=== PATIENT | female | born 1965 | race Caucasian/White ===

== ENCOUNTER → 2017-05-29 | Outpatient (CLI) | payer OTHER | LOC: CIMAGING 14:39 | PROVIDERS: ATTEND Internal Medicine Rheumatology | DX: M25.50 Pain in unspecified joint (principal); L40.9 Psoriasis, unspecified; D86.9 Sarcoidosis, unspecified | CPT/HCPCS: 73120-PO ==

== ENCOUNTER 2017-06-03 22:51 | Inpatient (IN) | payer OTHER ==
[2017-06-03] MEDS ORDERED: ONDANSETRON 4 MG/2 ML VIAL IVP ONE (23:17)
[2017-06-03] MEDS ORDERED: NS 1,000 ML IV ONE (23:17)
--- NOTE | 2017-06-03 23:21 | EDPHY ---
H & P Stated Complaint: N,V, FEVER AND CONSTIPATION Time Seen by Provider: 06/03/17 23:00 HPI/ROS: HPI The patient presents with abdominal planes which are in her right upper quadrant and to her right back which have been present for the last several days. Her illness began about 5 days ago when she was dizzy with fever and nausea. The following day, she was seen at an urgent care and received IV fluids, she had a flu test which was negative. She continued to have ongoing fevers, body aches. She then about 2 days ago developed this abdominal pain which she describes as a bloated feeling which is prominently in her right abdomen and radiates toward her back. She saw her primary care doctor yesterday who started her on Augmentin for possible diverticulitis it seems verses sinusitis. She says she has not had a bowel movement in 6 days and became concerned about this tonight. She tried an enema tonight without relief. She called the advice nurse and was instructed to come to the emergency department to evaluate for stool impaction. The patient says that she is able to tolerate fluids by mouth, though feels nauseated. She had a fever about 1 hr ago of 100.4. REVIEW OF SYSTEMS Constitutional: No fever, no chills. Eyes: No discharge. ENT: No sore throat. Cardiovascular: No chest pain, no palpitations. Respiratory: No cough, no shortness of breath. Gastrointestinal: No abdominal pain, no vomiting. Genitourinary: No hematuria. Musculoskeletal: No back pain. Skin: No rashes. Neurological: No headache. PMHx: History of breast cancer, status post mastectomy, status post total abdominal hysterectomy, history of hernia repair with some complications, history of colon resection with peritonitis Soc Hx: Lives at home with her PHYSICAL General Appearance: Alert, no distress Eyes: Pupils equal and round no pallor or injection ENT, Mouth: Mucous membranes moist Respiratory: There are no retractions, lungs are clear to auscultation Cardiovascular: Regular rate and rhythm Gastrointestinal: Abdomen is soft and tender in the right upper and lower quadrants, no masses, bowel sounds normal Rectal: There is no masses, there is no stool in the rectal vault Neurological: A&O, moves all extremities Skin: Warm and dry, no rashes Musculoskeletal: Neck is supple non tender Extremities: symmetrical, full range of motion Psychiatric: Patient is oriented X 3, there is no agitation Source: Patient Exam Limitations: No limitations - Personal History LMP (Females 10-55): Hysterectomy Current Tetanus/Diphtheria Vaccine: Unsure Current Tetanus Diphtheria and Acellular Pertussis (TDAP): Unsure - Medical/Surgical History Hx Asthma: No Hx Chronic Respiratory Disease: No Hx Diabetes: Yes Hx Cardiac Disease: Yes Hx Renal Disease: Yes Other PMH: Mesh in abdomen,holding umbilical hernia 2008.C section, colon surgery and peritonitis with repair. Hysterectomy. double mastectomy, sinus surgery, bronchial surgery for sarcoid immune disease,knee surgery,. KIDNEY STONES. svt, type 2 diabetes - Social History Smoking Status: Former smoker Constitutional: Initial Vital Signs Temperature (C) 37.6 C 06/03/17 22:52 Heart Rate 89 06/03/17 22:52 Respiratory Rate 18 06/03/17 22:52 Blood Pressure 115/80 06/03/17 22:52 O2 Sat (%) 100 06/03/17 22:52 O2 Delivery Mode Room Air Allergies/Adverse Reactions: Sulfa (Sulfonamide Antibiotics) Allergy (Intermediate, Verified 12/26/15 18:24) Hives naproxen [From Naprosyn] Allergy (Unknown, Verified 12/26/15 18:24) Unknown Anesthetics - Tawnya Type- Parabens [Anesthetics - Tawnya Type] Allergy (Verified 12/26/15 18:24) Home Medications: Medication Instructions Recorded LEVOTHYROXINE 11/03/09 Gemfibrozil 08/25/14 Lisinopril [PRINIVIL] 08/25/14 Metformin HCl [Metformin 1000 mg] 08/25/14 Diflucan 06/03/17 Medical Decision Making - Diagnostics Imaging Results: Imaging Impressions Abdomen CT 06/03/17 23:17 Impression: 1. Stone measuring 1.2 x 0.7 x 1.1 cm impacted at the right ureteropelvic junction results in mild to moderate right hydronephrosis and mild periureteral inflammatory change. The right kidney is enlarged and enhances slightly less than the left, suggesting some diminished function. 2. Splenomegaly, similar to comparison exam in 2009. Dr. Marin discussed these findings by telephone with Daysi Lazaro MD on 06/04/2017 at 0025 hours. Differential Diagnosis: 51-year-old female with multiple medical problems including multiple abdominal operations, presents with a multitude of symptoms which began 5 days ago, which sound mostly flu-like including fever, malaise, myalgias, nausea and vomiting, now with several days of abdominal pain associated with constipation. Differential diagnosis is broad at this time includes peritonitis, appendicitis , cholecystitis, influenza, constipation, urinary tract infection. In the emergency department, patient received 1 L of IV fluids and Zofran for her symptoms. Labs were checked and were relatively unremarkable. CT scan of her abdomen did reveal an approximately 1 cm stone at the right UVJ. This is likely the cause of her symptoms. Urinalysis results returned and did show evidence of infection. I have reviewed her prior urine cultures and she has a history of E coli resistant to multiple antibiotics. It has been sensitive to ceftriaxone and I have given her a dose of this here. I feel she should be admitted for IV antibiotics and urologic consultation. I have discussed the case with the hospitalist Dr. Lan who will admit the patient. I have consulted with Dr. Cota from Urology who recommends IV antibiotics and hydration, his service will see the patient in consultation later in the morning. The patient has been updated on the plan. - Data Points Laboratory Results: Laboratory Results 06/03/17 23:27 06/03/17 23:27 06/04/17 06/03/17 06/03/17 00:20 23:27 23:27 WBC 8.94 10^3/uL 10^3/uL (3.80-9.50) RBC 3.44 10^6/uL L 10^6/uL (4.18-5.33) Hgb 10.9 g/dL L g/dL (12.6-16.3) Hct 29.7 % L % (38.0-47.0) MCV 86.3 fL fL (81.5-99.8) MCH 31.7 pg pg (27.9-34.1) MCHC 36.7 g/dL g/dL (32.4-36.7) RDW 12.4 % % (11.5-15.2) Plt Count 144 10^3/uL L 10^3/uL (150-400) MPV 9.7 fL fL (8.7-11.7) Neut % (Auto) Not Reported Lymph % (Auto) Not Reported [place] % (Auto) Not Reported Eos % (Auto) Not Reported Baso % (Auto) Not Reported Nucleat RBC Rel Count 0.0 % % (0.0-0.2) Absolute Neuts (auto) Not Reported Absolute Lymphs (auto) Not Reported Absolute Monos (auto) Not Reported Absolute Eos (auto) Not Reported Absolute Basos (auto) Not Reported Absolute Nucleated RBC 0.00 10^3/uL 10^3/uL (0-0.01) Immature Gran % Not Reported Seg Neutrophils % 70 % % Band Neutrophils % 2 % % Lymphocytes % 16 % % Monocytes % 7 % % Eosinophils % 3 % % Basophils % 1 % % Metamyelocytes % 1 % % Immature Gran # Not Reported Absolute Seg Neuts 6.26 10^/uL 10^/uL (1.70-6.50) Absolute Band Neuts 0.18 10^3/uL 10^3/uL (0.00-0.70) Absolute Lymphocytes 1.43 10^3/uL 10^3/uL (1.00-3.00) Absolute Monocytes 0.63 10^3/uL 10^3/uL (0.30-0.80) Absolute Eosinophils 0.27 10^3/uL 10^3/uL (0.03-0.40) Absolute Basophils 0.09 10^3/uL 10^3/uL (0.02-0.10) Absolute Metamyelocyte 0.09 10^3/mL H 10^3/mL (0.00-0.00) RBC/WBC/PLT Morphology NORMAL (NORMAL) Platelet Estimate DECREASED L (ADEQ) Sodium 133 mEq/L L mEq/L (134-144) Potassium 3.8 mEq/L mEq/L (3.5-5.2) Chloride 94 mEq/L L mEq/L (97-110) Carbon Dioxide 26 mEq/l mEq/l (22-31) Anion Gap 13 mEq/L mEq/L (8-16) BUN 20 mg/dL mg/dL (7-23) Creatinine 0.8 mg/dL mg/dL (0.6-1.0) Estimated GFR > 60 Glucose 322 mg/dL H mg/dL (70-100) Calcium 8.7 mg/dL mg/dL (8.5-10.4) Total Bilirubin 0.3 mg/dL mg/dL (0.1-1.4) Conjugated Bilirubin 0.2 mg/dL mg/dL (0.0-0.5) Unconjugated Bilirubin 0.1 mg/dL mg/dL (0.0-1.1) AST 22 IU/L IU/L (14-46) ALT 49 IU/L IU/L (9-52) Alkaline Phosphatase 115 IU/L IU/L (38-126) Total Protein 5.5 g/dL L g/dL (6.3-8.2) Albumin 3.2 g/dL L g/dL (3.5-5.0) Lipase 139 IU/L IU/L (23-300) Urine Color YELLOW Urine Appearance CLEAR Urine pH 6.0 (5.0-7.5) Ur Specific [place] 1.023 (1.002-1.030) Urine Protein NEGATIVE (NEGATIVE) Urine Ketones NEGATIVE (NEGATIVE) Urine Blood 2+ H (NEGATIVE) Urine Nitrate NEGATIVE (NEGATIVE) Urine Bilirubin NEGATIVE (NEGATIVE) Urine Urobilinogen NEGATIVE EU EU (0.2-1.0) Ur Leukocyte Esterase 2+ H (NEGATIVE) Urine RBC 5-10 /hpf H /hpf (0-3) Urine WBC 25-50 /hpf H /hpf (0-3) Ur Epithelial Cells TRACE /lpf /lpf (NONE-1+) Urine Glucose 3+ H (NEGATIVE) Medications Given: Discontinued Medications Sodium Chloride (Ns) 1,000 mls @ 0 mls/hr IV EDNOW ONE; Wide Open PRN Reason: Protocol Stop: 06/03/17 23:18 Last Admin: 06/03/17 23:29 Dose: 1,000 mls Ceftriaxone Sodium/Dextrose (Rocephin 1 Gm (Premix)) 50 mls @ 100 mls/hr IV EDNOW ONE PRN Reason: Protocol Stop: 06/04/17 01:21 Last Admin: 06/04/17 01:11 Dose: 50 mls Ondansetron HCl (Zofran) 4 mg IVP EDNOW ONE Stop: 06/03/17 23:18 Last Admin: 06/03/17 23:29 Dose: 4 mg Departure - Departure Disposition: [facility] Acute Clinical Impression: Pyelonephritis, Ureterolithiasis Hyperglycemia due to type 2 diabetes mellitus Qualifiers: Diabetes mellitus long-term insulin use: without rn long term care use Qualified Code(s ): E11.65 - Type 2 diabetes mellitus with hyperglycemia Condition: Fair
[2017-06-03 23:35] LABS: PLATELET COUNT 144 10^3/uL (150-400)
[2017-06-03] MEDS ORDERED: IOPAMIDOL (ISOVUE-300) 100 ML BTL ONE (23:43)
[2017-06-04] MEDS ORDERED: LACTULOSE 20 GM/30 ML UDCUP PO PRN (01:24)
[2017-06-04] MEDS ORDERED: MAGNESIUM HYDROXIDE 30 ML UDCUP PO PRN (01:24)
[2017-06-04] MEDS ORDERED: PROMETHAZINE HCL 25 MG/ML INJ IVP PRN (01:24)
[2017-06-04] MEDS ORDERED: HYDROCODONE/APAP 5/325 TAB PO PRN ×2 (01:24→15:35)
[2017-06-04] MEDS ORDERED: POLYETHYLENE GLYCOL 3350 17 GM PKT PO PRN (01:24)
[2017-06-04] MEDS ORDERED: ONDANSETRON 4 MG/2 ML VIAL IVP PRN ×2 (01:24→15:35)
[2017-06-04] MEDS ORDERED: TAMSULOSIN HCL 0.4 MG CAP PO ONE ×2 (01:28→01:57)
[2017-06-04] MEDS ORDERED: NS 1,000 ML IV SCH (01:30)
[2017-06-04] MEDS ORDERED: LR 1,000 ML IV SCH (01:30)
[2017-06-04] MEDS: ACETAMINOPHEN 325 MG TAB PO PRN ×4 (02:28→23:44)
[2017-06-04] MEDS: LORazepam 2 MG/ML INJ IVP PRN ×2 (02:28→23:44)
[2017-06-04] MEDS ORDERED: D50W 25 GM/50 ML VIAL IVP PRN (02:30)
[2017-06-04] MEDS ORDERED: OXYMETAZOLINE 30 ML NASAL SPRAY EACHNARE PRN ×2 (02:42→10:58)
[2017-06-04] MEDS: CETIRIZINE 10 MG TAB PO SCH ×2 (02:43→08:39)
[2017-06-04] MEDS ORDERED: FLU VACC QS 2017-18 (3YR+)/PF 0.5 ML SYR (FLUARIX QUAD) IM ONE (02:51)
[2017-06-04] MEDS ORDERED: PNEUMOCOCCAL 0.5ML VACCINE VIAL IM ONE (02:53)
--- NOTE | 2017-06-04 04:05 | GHP ---
[f rep st] HISTORY AND PHYSICAL DATE OF ADMISSION: 06/04/2017 SOURCE: Patient provides history, appears reliable. EMR reviewed and case discussed with ED provider, has been at bedside, supplements details. CHIEF COMPLAINT: Abdominal pain, nausea. HISTORY OF PRESENT ILLNESS: This is a very pleasant 51-year-old female with past medical history significant for diabetes type 2, hypertriglyceridemia, hypothyroidism, recurrent UTIs, psoriatic arthritis, sarcoidosis, history of breast cancer, status post mastectomy, who presents to the emergency department today with complaints of right-sided abdominal pain ongoing for the last 5 days. Patient has also been experiencing a variety of symptoms including fevers , nausea without any vomiting, myalgias, sinus headache with sinus pressure, migraine, and constipation. Patient presented to the urgent care several days ago and was found to be negative for flu. She continued to have intermittent fevers and nausea with progression of her abdominal pain, mostly right-sided, with radiation to her right flank. Patient denies any dysuria, hematuria. She presented to her PCP the day prior to arrival in the ER and was started on Augmentin for sinusitis and possibly for diverticulitis. Patient without any previous history of diverticulosis or kidney stones. REVIEW OF SYSTEMS: GENERAL: Positive for fevers and chills. SKIN: No rashes , sores. ENT: Patient reports maxillary sinus pressure bilaterally. No nasal discharge. Also, with bilateral ear pain without any changes in hearing. EYES : Patient reports that she has been having some increased dizziness with her headache. No vertiginous-type symptoms worsened when her headache worsens. CV : No chest pain, palpitations. RESPIRATORY: Patient reports she is having some increased pain with respirations in her abdomen which leads to shortness of breath, that she cannot take in a short full breath. No cough. GI: Positive for nausea. No vomiting. Abdominal pain as noted above. Constipation for 6 days. MUSCULOSKELETAL: Myalgias with muscle cramping in her lower back. History of diffuse psoriatic arthritis. NEURO: Patient reports headache. No numbness or tingling. PSYCH: Patient without any anxiety , depression. Remainder of review of systems negative except as noted above. ALLERGIES: Sulfa, naproxen, and certain anesthetics. HOME MEDICATIONS: Metformin, lisinopril, levothyroxine, gemfibrozil, Diflucan. PAST MEDICAL HISTORY: Significant for diabetes type 2, hypothyroidism, hypertriglyceridemia, multidrug-resistant recurrent UTIs, history of SVT, psoriatic arthritis with diffuse pain, history of breast cancer, status post mastectomy, sarcoidosis primarily localized in the lungs. PAST SURGICAL HISTORY: Significant for bilateral mastectomy, status post implants, total abdominal hysterectomy with BSO, sinus surgery, mesh hernia repair, history of a bowel-associated lipoma, status post resection complicated by perforation and peritonitis, and sinus surgery, knee surgery. FAMILY HISTORY: Significant for father and several brothers with kidney stones. Mother with melanoma, in her 40s. Father with skin cancer, squamous cell type, and colonic polyps. Sister with sarcoidosis and hypothyroidism. SOCIAL HISTORY: Patient is . She lives with her . She has 3 children. She quit smoking in 1993. She rarely drinks alcohol. Does not use any illicit drugs or marijuana. CODE STATUS: Full. Patient without advance directives, but desires her to act as proxy if needed. PHYSICAL EXAMINATION: VITAL SIGNS: Upon arrival to the ER, blood pressure 115/ 80, heart rate 89, respiratory rate 18, O2 saturation was 100% on room air with a temperature 37.6. Vitals currently available at the time of interview, blood pressure 118/67, heart rate 81, respiratory rate 16, O2 saturation 95% on 2 L by nasal cannula with a temperature of 37.5. GENERAL: No acute distress, pleasant adult female is lying in bed. She does appear ill and but nontoxic and quite fatigued. HEAD: Normocephalic, atraumatic. EYES: Extraocular muscles grossly intact. No scleral icterus or conjunctival injection. Pupils equal, round, reactive to light bilaterally and symmetric. ENT: Mucous membranes appear moist. No oropharyngeal erythema. Dentition intact. No nasal discharge. Positive sinus tenderness in the maxillary sinuses. NECK: Supple. Trachea midline. CV: Regular rate and rhythm. Slightly distant heart sounds. No murmurs, rubs, or gallops. RESPIRATORY: Lungs clear to auscultation bilaterally. No wheezes, rales, or rhonchi. ABDOMEN: Obese, mildly distended and full, soft. Overall, patient with tenderness to palpation in the right upper quadrant, right lateral abdomen. No rebound, guarding, or masses. Negative Jackson sign. : No suprapubic tenderness to palpation. No Vincent catheter in place. Right CVA tenderness. EXTREMITIES: Patient with trace lower extremity edema. 1+ pedal pulses bilaterally and symmetric. No cyanosis, clubbing, or edema appreciated. NEUROLOGIC: Nonfocal. No facial drooping. Moves all extremities. Sits up with minimal assistance secondary to complaints of abdominal pain. MUSCULOSKELETAL: As above. PSYCH: Patient's thought process, content, and questions are all appropriate. She is pleasant and interactive. LABORATORY DATA: Sodium 133, potassium 3.8, chloride 94, CO2 of 26, BUN 20, anion gap 13, creatinine 0.8, GFR greater than 60. Glucose 322. Calcium 8.7. Total bilirubin 0.3, ALT 49, AST is 22, albumin 3.2, total protein 5.5, alkaline phosphatase 115, lipase 139. UA: Specific gravity 1.023, pH is 6.0, 2 + blood, 2+ leukocyte esterase, RBCs 5-10, WBCs 25-50 with 3+ glucose. IMAGING DATA: CT abdomen and pelvis with contrast significant for a 1.2 x 0.7 x 1.1 cm impacted right UPJ stone with mild to moderate right hydronephrosis and mild periureteral inflammatory changes and stranding. Right kidney enlarged enhances slightly less than the left suggesting some diminished function. Splenomegaly that is stable since 2009. ASSESSMENT AND PLAN: Deric 51-year-old female with history of diabetes, hypothyroidism, recurrent multidrug-resistant urinary tract infections of Escherichia coli, sarcoidosis, psoriatic arthritis, who now presents with complaints of fever, nausea, and abdominal plain, radiating to her back. 1. Obstructive ureterolithiasis with a greater than 1 cm stone impacted at the right ureteropelvic junction. There are moderate hydronephrosis and periureteral stranding. Patient without any systemic inflammatory response syndrome criteria at this time. She has been given IV fluids and started on Rocephin based on previous urine cultures available showing sensitivity to most cephalosporins, including Rocephin. Urology was consulted from the emergency department. Will plan to see the patient in the morning. Will make her n.p.o. in anticipation for possible procedure. Will give her a dose of tamsulosin now. 2. Abdominal and flank pain. Patient will have morphine available p.r.n., as well as Ativan for muscle spasms. Additionally, Zofran, Phenergan available for her associated nausea. 3. Urinary tract infection. Present upon admission related to impacted stone. Antibiotic therapy and plan as noted above in #1. 4. Hyponatremia, likely secondary to dehydration in setting of feeling ill for the last several days. Continue with IV fluid hydration. 5. Hypochloridemia related to dehydration in setting of hyponatremia. Plan as above. Repeat BMP this morning. 6. Headache is likely sinus related. Will have Flonase and antihistamine therapy available per formulary. 7. Constipation, likely in setting of patient's acute illness with dehydration and her kidney stone. Bowel sounds are fairly quiet. She has failed an enema treatment at home. Will do a trial of oral options for bowel regimen. There is no evidence of obstruction on imaging. 8. Diabetes type 2, controlled, at home on metformin, which will be held. Will place patient on a moderate sliding scale while inpatient. 9. Hypertriglyceridemia. Resume gemfibrozil after patient is no longer n.p.o. 10. Psoriatic arthritis - tylenol prn. diflucan when medications reconciled. 11. sarcoidosis - in remission 12. hypothyroidism - continue l- thyroxine when meds reconciled and diet advanced. FEN - IVF overnight. NPO pending urology evaluation. electrolytes will be monitored and replaced prn. PPX - SCDs. holding anticoagulation pending urology evaluation COR - FULL. Vladimir Canas to act as proxy if needed. Dispo - Admit to observation at this time pending urology evaluation and urine culture for appropriate po antibiotic therapy in setting of hx uti resistance. /[id number]/MODL MTDD
[2017-06-04 05:53] LABS: PLATELET COUNT 133 10^3/uL (150-400)
--- NOTE | 2017-06-04 08:03 | SOAPPROG ---
SOAP Progress Note Assessment/Plan: Assessment: Pyelonephritis Acute appropriate antibx coverage and plan intervention for stone Ureterolithiasis Acute need intervention, Discussed with IR Plan: discuss options of rx of stone in right ureter, PCN, ureteroscopy, stent followed by ESWL. Plan to have PCN today and arrange removal of stone in next week 06/04/17 08:52 Subjective: comfortable Objective: Vital Signs Temp Pulse Resp BP Pulse Ox 36.9 C 74 18 102/66 96 06/04/17 07:10 06/04/17 07:10 06/04/17 07:10 06/04/17 07:10 06/04/17 07:10 Laboratory Results 06/04/17 05:22 06/04/17 05:22 06/03/17 06/04/17 06/05/17 05:59 05:59 05:59 Intake Total 1150 Output Total 100 Balance 1050 Physical Exam - Physical Exam General Appearance: alert Neck: supple Respiratory: No respiratory distress Cardiac/Chest: regular rate, rhythm Abdomen: soft Back: CVA tenderness (right sided yet better this am) Skin: warm/dry Extremities: No calf tenderness Neuro/Psych: alert, oriented x 3 ICD10 Worksheet Patient Problems: Problems Problem Status Onset Hyperglycemia due to type 2 diabetes mellitus Acute Pyelonephritis Acute Ureterolithiasis Acute
[2017-06-04] MEDS: SENNOSIDES/DOCUSATE SODIUM TAB PO SCH ×2 (08:39→20:13)
[2017-06-04] MEDS: INSULIN LISPRO 100 UNIT/ML SC SCH ×3 (08:39→18:13)
[2017-06-04] MEDS ORDERED: FLUTICASONE NASAL 120 SPRAYS/16 GM MDI EACHNARE PRN (10:58)
[2017-06-04] MEDS ORDERED: TETRAHYDROZOLINE 0.05% 15 ML OPHT.BTL OP PRN (10:58)
[2017-06-04] MEDS: FLUTICASONE NASAL 120 SPRAYS/16 GM MDI EACHNARE SCH (11:25)
--- NOTE | 2017-06-04 11:47 | HOSPPROG ---
Hospitalist Progress Note Assessment/Plan: New pt encounter #Right sided Nephrolithiasis with infection #Right Moderate Hydronephrosis #Constipation #abd pain #Hyponatremia, resolved #NIDDM Plan: -Urological mgmt today -cont NPO for now -Tamsulosin -CT abd reviewed, she does not have any signs of bowel obstruction. Her abd is non distended. -Would not advance diet past clears today -Cont stool regimen once back on PO -Hold Metformin, cont ISS -Pain mgmt -appropriate home meds -SCD's. Subjective: still with some abd pain. She reports less distended. Occassional Flatus, but none since yesterday. CT abd did not show obstruction. Pain is overall well controlled. Objective: Vital Signs Temp Pulse Resp BP Pulse Ox 36.9 C 74 18 102/66 96 06/04/17 07:10 06/04/17 07:10 06/04/17 07:10 06/04/17 07:10 06/04/17 07:10 Laboratory Results 06/04/17 05:22 06/04/17 05:22 06/03/17 06/04/17 06/05/17 05:59 05:59 05:59 Intake Total 1150 Output Total 100 Balance 1050 - Physical Exam Constitutional: no apparent distress, appears nourished Eyes: PERRL, EOMI Ears, Nose, Mouth, Throat: moist mucous membranes, hearing normal, ears appear normal Cardiovascular: regular rate and rhythym, no murmur, rub, or gallop, No JVD, No edema Respiratory: no respiratory distress, no rales or rhonchi, clear to auscultation Gastrointestinal: normoactive bowel sounds, tenderness (mild lower quadrants TTP ), No ascites, No guarding, No rebound, No distension Genitourinary: no bladder fullness Skin: warm Neurologic: AAOx3 Psychiatric: interacting appropriately, not anxious ICD10 Worksheet Patient Problems: Problems Problem Status Onset Hyperglycemia due to type 2 diabetes mellitus Acute Pyelonephritis Acute Ureterolithiasis Acute
[2017-06-04 12:01] LABS: INR 1.14 (0.83-1.16); PROTIME(PATIENT) 14.8 SEC (12.0-15.0)
[2017-06-04] MEDS ORDERED: DEXMEDETOMIDINE IN 0.9 % NACL 50 ML IV ONE (12:30)
[2017-06-04] MEDS ORDERED: CIPROFLOXACIN 400 MG/DEXTROSE 200 ML IV ONE (13:00)
--- NOTE | 2017-06-04 13:00 | ASMTCMCOM ---
CM Note CM Note Notes: Patient admitted with abdominal pain, found to have a kidney stone and pyelonephritis. Urology has consulted and recommends Penicillin, ureteroscopy, stent followed by ESWL. Patient lives with and is normally independent. I anticipate she will discharge home when able. If any needs arise, Case Management is available. Date Signed: 06/04/2017 12:59 PM Electronically Signed By:Margarita Schaffer RN
--- NOTE | 2017-06-04 13:40 | PDANEPAE ---
ANE History of Present Illness Patient presents for R nephrostomy tube ANE Past Medical History - Cardiovascular History Hx Hypertension: Yes - Pulmonary History Hx Oxygen in Use at Home: No Hx Sleep Apnea: No Sleep Apnea Screening Result - Last Documented: Negative - Endocrine History Hx Diabetes: Yes ANE Review of Systems Review of Systems: ANE Patient History - Allergies Allergies/Adverse Reactions: Sulfa (Sulfonamide Antibiotics) Allergy (Intermediate, Verified 12/26/15 18:24) Hives naproxen [From Naprosyn] Allergy (Unknown, Verified 06/04/17 10:25) dizziness Anesthetics - Tawnya Type- Parabens [Anesthetics - Tawnya Type] Allergy (Verified 12/26/15 18:24) - Home Medications Home medications: home medication list seen and reviewed Home Medications: Levothyroxine [Synthroid 50 mcg (*)] 50 mcg PO DAILY06 11/03/09 [Last Taken 08/16] Metformin HCl [Metformin 1000 mg] 1,000 mg PO BIDMEAL 08/25/14 [Last Taken 05/29 18:00] Fluconazole [Diflucan (*)] 150 mg PO ONCE 06/03/17 [Last Taken Unknown] Acetaminophen [Tylenol 325mg (*)] 325 mg PO DAILY PRN 06/04/17 [Last Taken Unknown] Amoxicillin/Clavulanate Pot [Augmentin 875 MG TAB (*)] 875 mg PO BID 06/04/17 [ Last Taken 06/03/17 21:00] Ascorbic Acid [Vitamin C 500 mg (*)] 500 mg PO DAILY 06/04/17 [Last Taken Unknown] Aspirin [Aspirin 325 mg (*)] 325 mg PO DAILY PRN 06/04/17 [Last Taken Unknown] Cholecalciferol Vit D3 [Vitamin D3 (*)] 1,000 units PO DAILY 06/04/17 [Last Taken Unknown] Diclofenac Sodium [Voltaren 75 MG (*)] 75 mg PO BID PRN 06/04/17 [Last Taken 07/19] Fluticasone Nasal [Flonase Nasal [place] (RX)] 1 sprays NASAL DAILY PRN 06/04/17 [ Last Taken Unknown] Gemfibrozil [Lopid 600 MG (*)] 600 mg PO BIDAC 06/04/17 [Last Taken 05/29/17 18: 00] Lisinopril [Zestril 2.5 mg (*)] 2.5 mg PO DAILY 06/04/17 [Last Taken 05/29/17] Multivitamins [Multivitamin (*)] 1 each PO DAILY 06/04/17 [Last Taken Unknown] Oxymetazoline HCl [Afrin Nasal [place] (OTC)] 1 spray EACHNARE BID PRN 06/04/17 [ Last Taken Unknown] Tetrahydrozoline 0.05% [Visine (*)] 1 drops OP DAILY PRN 06/04/17 [Last Taken ] - Anes Hx Anes Hx: post operative nausea and vomiting - Smoking Hx Smoking Status: Former smoker ANE Labs/Vital Signs - Labs Result Diagrams: 06/04/17 05:22 06/04/17 05:22 - Vital Signs Blood Pressure: 104/74 Heart Rate: 78 Respiratory Rate: 18 O2 Sat (%): 90 Height: 160.02 cm Weight: 82.8 kg ANE Physical Exam - Airway Neck exam: FROM Mallampati Score: Class 2 - Pulmonary Pulmonary: no respiratory distress - Cardiovascular Cardiovascular: pulses symmetric bilaterally - ASA Status ASA Status: III, E ANE Anesthesia Plan Anesthesia Plan: general endotracheal anesthesia (rba discussed, patient agrees to proceed)
[2017-06-04] MEDS ORDERED: fentaNYL 100 MCG/2 ML INJ ONE (13:51)
[2017-06-04] MEDS ORDERED: SUCCINYLCHOLINE CHLORIDE 200 MG/10 ML SYR IVP ONE (13:51)
[2017-06-04] MEDS ORDERED: PROPOFOL 200 MG/20 ML VIAL ONE (13:51)
[2017-06-04] MEDS ORDERED: LIDOCAINE 2% 5 ML SDV ONE (13:52)
[2017-06-04] MEDS ORDERED: PROPOFOL/EMULSION 500 MG/50 ML BOTTLE IV ONE ×2 (13:55→15:00)
[2017-06-04] MEDS ORDERED: ONDANSETRON 4 MG/2 ML VIAL ONE (14:38)
[2017-06-04] MEDS ORDERED: METOCLOPRAMIDE 10 MG/2 ML VIAL ONE (14:44)
[2017-06-04] MEDS ORDERED: OXYCODONE/APAP 5/325 TAB PO PRN (15:35)
[2017-06-04] MEDS ORDERED: NALOXONE HCL 0.4 MG/ML INJ IVP PRN (15:35)
[2017-06-04] MEDS ORDERED: LR 500 ML IV PRN (15:35)
[2017-06-04] MEDS ORDERED: fentaNYL 100 MCG/2 ML INJ IVP PRN (15:35)
--- NOTE | 2017-06-04 15:35 | POSTANESTH ---
Post Anesthetic Evaluation Cardiovascular Status: Similar to Pre-Op Cond Respiratory Status: Similar to Pre-op Cond. Level of Consciousness/Mental Status: Can Participate in Eval Pain Control: Adequate, Prn Tx Ordered Nausea/Vomiting Control: Adequate, Prn Tx Ordered Complications Possibly Related to Anesthesia: None Noted
--- NOTE | 2017-06-04 15:42 | PDRADPN ---
Radiology Procedure Note Date of Procedure: 06/04/17 Radiologist: Bert Marin Anesthesia: GET(General Endotracheal) Pre-op Diagnosis: Right obstructing stone Post-op Diagnosis: Same Indication: Same Procedure: Right nephrostomy Finding(s): See dictated report Inf/Abcess present in the surg proc area at time of surgery?: No EBL: Minimal (Less than 20 mL) Complications: No immediate Drains: Nephrostomy (10-Fr right nephrostomyh)
[2017-06-04] MEDS: GEMFIBROZIL 600 MG TAB PO SCH (18:12)
[2017-06-04 20:10] VITALS: RESP 16
[2017-06-05] MEDS: ACETAMINOPHEN 325 MG TAB PO PRN ×4 (05:13→22:00)
[2017-06-05] MEDS: LEVOTHYROXINE 50 MCG TAB PO SCH (05:13)
[2017-06-05] MEDS: GEMFIBROZIL 600 MG TAB PO SCH ×2 (06:40→17:52)
[2017-06-05] MEDS: SENNOSIDES/DOCUSATE SODIUM TAB PO SCH ×2 (08:28→22:01)
[2017-06-05] MEDS: CHOLECALCIFEROL VIT D3 1,000 UNITS TAB PO SCH (08:28)
[2017-06-05] MEDS: CETIRIZINE 10 MG TAB PO SCH (08:28)
[2017-06-05] MEDS: INSULIN LISPRO 100 UNIT/ML SC SCH ×3 (08:29→17:52)
[2017-06-05] MEDS: FLUTICASONE NASAL 120 SPRAYS/16 GM MDI EACHNARE SCH (08:31)
[2017-06-05] MEDS: BISACODYL 10 MG SUPP PR PRN ×2 (12:43→14:44)
[2017-06-05] MEDS ORDERED: IOPAMIDOL (ISOVUE-300) 100 ML BTL ONE (13:45)
--- NOTE | 2017-06-05 14:17 | HOSPPROG ---
Hospitalist Progress Note Assessment/Plan: 51 YO F admitted with right sided nephrolithiasis with infection Had PCN tube placed 06/04 Dr. Cota following, plan for ureteroscopy, stent, ESWL likely next week still with abd pain, malaise, discomfort #Right sided Nephrolithiasis with infection #Right Moderate Hydronephrosis #Constipation, awaiting bm #abd pain #Hyponatremia, resolved #NIDDM Plan: -Uro mgmt -Reg diet -CT abd reviewed, she does not have any signs of bowel obstruction. Her abd is non distended. -Would not advance diet past clears today -Hold Metformin, cont ISS, check a1c -Pain mgmt -appropriate home meds -SCD's. Subjective: had PCN tube yesterday. still wth abd pain. not distended. Passing gas. Still with right flank pain, athough pain is well controlled. No Fever. UCx , NGTD. Objective: Vital Signs Temp Pulse Resp BP Pulse Ox 37.0 C 82 16 112/66 89 L 06/05/17 11:45 06/05/17 11:45 06/05/17 11:45 06/05/17 11:45 06/05/17 11:45 Laboratory Results 06/04/17 05:22 06/04/17 05:22 06/04/17 06/05/17 06/06/17 05:59 05:59 05:59 Intake Total 1150 480 Output Total 100 1100 Balance 1050 -620 PT 14.8 SEC (12.0-15.0) 06/04/17 11:35 INR 1.14 (0.83-1.16) 06/04/17 11:35 - Physical Exam Constitutional: no apparent distress Eyes: PERRL, EOMI Ears, Nose, Mouth, Throat: moist mucous membranes, hearing normal Cardiovascular: regular rate and rhythym, no murmur, rub, or gallop, No edema Respiratory: no respiratory distress, no rales or rhonchi Gastrointestinal: soft, non-tender abdomen, no palpable masses, No normoactive bowel sounds, No rebound, No distension Skin: warm Neurologic: AAOx3 Psychiatric: interacting appropriately, not anxious, not encephalopathic Lymph, Heme, Immunologic: No petechiae ICD10 Worksheet Patient Problems: Problems Problem Status Onset Hyperglycemia due to type 2 diabetes mellitus Acute Pyelonephritis Acute Ureterolithiasis Acute
--- NOTE | 2017-06-05 16:19 | PDMN ---
Medical Necessity Medical necessity: Pt meets INPT criteria per MD as of 06/05/17 and MCG M-320 Renal Colic and Kidney Stones (R-sided nephrolithiasis with infection req. nephrostomy tube with ongoing abd pain, malaise; req IV fluids IVABx; est. LOS > 2 MN).
--- NOTE | 2017-06-05 18:43 | SOAPPROG ---
SOAP Progress Note Assessment/Plan: Assessment: Pyelonephritis Acute appropriate antibx coverage and plan intervention for stone next week Ureterolithiasis Acute need intervention, Discussed with IR and PCN placed, culture pending and draining well Plan: discuss options of rx of stone in right ureter, PCN, ureteroscopy, stent followed by ESWL. Plan to have PCN complete and arrange removal of stone in next week 06/05/17 18:42 Subjective: better, need BM Objective: Vital Signs Temp Pulse Resp BP Pulse Ox 36.8 C 74 16 112/72 90 L 06/05/17 15:34 06/05/17 15:34 06/05/17 15:34 06/05/17 15:34 06/05/17 15:34 06/04/17 06/05/17 06/06/17 05:59 05:59 05:59 Output Total 400 Balance -400 PT 14.8 SEC (12.0-15.0) 06/04/17 11:35 INR 1.14 (0.83-1.16) 06/04/17 11:35 Physical Exam - Physical Exam General Appearance: alert Neck: supple Respiratory: No respiratory distress Back: No CVA tenderness Neuro/Psych: alert, oriented x 3 ICD10 Worksheet Patient Problems: Problems Problem Status Onset Hyperglycemia due to type 2 diabetes mellitus Acute Pyelonephritis Acute Ureterolithiasis Acute
[2017-06-05] MEDS ORDERED: MELATONIN 3 MG TAB PO SCH (21:45)
[2017-06-06 02:50] VITALS: PULSE 72; TEMP 98.1
[2017-06-06] MEDS: LEVOTHYROXINE 50 MCG TAB PO SCH (06:27)
[2017-06-06] MEDS: ACETAMINOPHEN 325 MG TAB PO PRN (06:27)
[2017-06-06 07:22] VITALS: BP 127/73; O2SAT 96
[2017-06-06] MEDS: INSULIN LISPRO 100 UNIT/ML SC SCH ×2 (09:29→13:07)
[2017-06-06] MEDS: SENNOSIDES/DOCUSATE SODIUM TAB PO SCH (09:30)
[2017-06-06] MEDS: GEMFIBROZIL 600 MG TAB PO SCH (09:30)
[2017-06-06] MEDS: CETIRIZINE 10 MG TAB PO SCH (09:31)
[2017-06-06] MEDS: CHOLECALCIFEROL VIT D3 1,000 UNITS TAB PO SCH (09:31)
--- NOTE | 2017-06-06 12:45 | PDDCSUM ---
Discharge Summary Discharge Summary: 51 YO F admitted with right sided nephrolithiasis with infection Had PCN tube placed /, draining well Dr. Cota following, plan for ureteroscopy, stent, ESWL likely next week. The pt will f/u with him next week DDX #Right sided Nephrolithiasis with infection. Transitioned from Rocephin to Omnicef #Right Moderate Hydronephrosis #Constipation, she had small BM here. She is having Flatus. She will cont stool regimen at home #abd pain, resolved #Hyponatremia, resolved #NIDDM, home meds PE: VSS NAD AAOX3 RRR CTAB S/NT/ND NO LE EDEMA MEDS: SEE MED REC F/U: PER ABOVE TOTAL TIME SPENT ON D/C IS 35 MINS
[2017-06-06] MEDS: FLUTICASONE NASAL 120 SPRAYS/16 GM MDI EACHNARE SCH (13:50)
--- NOTE | 2017-06-06 15:37 | ASDISCHSUM ---
Discharge Information Plan Status:Home with No Needs Medically Cleared to Leave: Discharge Date:06/06/2017 02:55 PM CM D/C Disposition:Home, Routine, Self-Care ADT D/C Disposition:Home, Routine, Self-Care Projected Discharge Date:06/06/2017 02:55 PM Transportation at D/C: Discharge Delay Reason: Follow-Up Date:06/06/2017 02:55 PM Discharge Slot: Final Diagnosis: Placement Information Patient Contact Information Contact Name:YASMANY Relationship: Address:[address] [place] [address] City:[facility] Phone: [facility]/Zip Code:[place] [address] Email: Financial Information Financial Class:[employer] Primary Plan Desc:EVE PATEL Primary Plan Number:[id number] Secondary Plan Desc: Secondary Plan Number: Assessment Information [facility] CM Progress Note CM Note CM Note Notes: Patient admitted with abdominal pain, found to have a kidney stone and pyelonephritis. Urology has consulted and recommends Penicillin, ureteroscopy, stent followed by ESWL. Patient lives with and is normally independent. I anticipate she will discharge home when able. If any needs arise, Case Management is available. Date Signed: 06/04/2017 12:59 PM Electronically Signed By:Margarita Schaffer RN Case Management Discharge Plan Note Case Management Discharge Discharge Order Complete? Answers: Yes Patient to Obtain Answers: via Family Medications Transportation Arranged Answers: Family/Friends Discharge Comments Notes: PtHui agee/eneida independently to her today. Date Signed: 06/06/2017 12:54 PM Electronically Signed By:Adelina Fischer LCSW Intervention Information
== END 2017-06-06 14:55 | disposition home or self-care (01) | DRG 690 ==
LOC: F3E 06-04 02:08 → OBSVTOIN 06-05 16:00
PROVIDERS: ADMIT Family Medicine; ATTEND Family Medicine
PROC: 0T9030Z Drainage of Right Kidney with Drainage Device, Percutaneous Approach (ICD-10-PCS; principal; 2017-06-05)
DX: N13.6 Pyonephrosis (principal); E87.1 Hypo-osmolality and hyponatremia; K59.00 Constipation, unspecified; E11.9 Type 2 diabetes mellitus without complications; E03.9 Hypothyroidism, unspecified; L40.50 Arthropathic psoriasis, unspecified; Z87.891 Personal history of nicotine dependence; Z85.3 Personal history of malignant neoplasm of breast; Z87.442 Personal history of urinary calculi; Z87.440 Personal history of urinary (tract) infections
CPT/HCPCS: 96365; C1729; C1769; G0378; J0330; J0696; J0744; J1200; J1644; J1815; J2060; J2405; J2550; J2704; J2765; J3010; Q9967

== ENCOUNTER → 2017-06-11 | Day surgery (SDC) | payer OTHER ==
--- NOTE | 2017-06-10 17:27 | GHP ---
[f rep st] PREOP HISTORY AND PHYSICAL DATE OF ADMISSION: 06/11/2017 ADMISSION DIAGNOSIS: Ureteral calculus. HISTORY: This lady has had a ureteral calculus that required percutaneous nephrostomy tube placement and she had been discharged home. She is admitted now for ureteroscopic manipulation of the stone. Her original nephrostomy tube was placed in the lower pole kidney and I do not think I could do a per cutaneous procedure on this to remove the proximal ureteral stone, so we have recommended that she un dergo ureteroscopy. The stone is not very visual on the KUB, so extracorporeal shockwave lithotripsy would be unlikely. PAST MEDICAL HISTORY: Is well documented in the chart. MEDICATIONS: As noted. REVIEW OF SYSTEMS: As noted. PHYSICAL EXAM: VITAL SIGNS: Stable. CHEST: Unlabored breathing. HEART: Regular rate and rhythm. ABDOMEN: Soft. No rebound or guarding. She has a percutaneous nephrostomy tube in place. LOWER EXTREMITIES: Normal. ASSESSMENT AND PLAN: She is admitted for the above procedure as an outpatient. /[id number]/MODL
[~2017-06-11] MED LIST: DEXAMETHASONE 4 MG/ML VIAL ONE; HYDROCODONE/APAP 5/325 TAB PO PRN; HYDROmorphONE/DILAUDID 1 MG/ML INJ IVP PRN; IOPAMIDOL (ISOVUE-M 300) 15 ML VIAL ONE; LIDOCAINE 2% 5 ML SDV ONE; LIDOCAINE 2% JELLY 20 ML (UROJECT) ONE; LR 1,000 ML IV ONE; LR 500 ML IV PRN; MIDAZOLAM 2 MG/2 ML VIAL IVP ONE; NALOXONE HCL 0.4 MG/ML INJ IVP PRN; ONDANSETRON 4 MG/2 ML VIAL IVP PRN; ONDANSETRON 4 MG/2 ML VIAL ONE; PHENAZOPYRIDINE HCL 200 MG TAB ONE; PHENAZOPYRIDINE HCL 200 MG TAB PO ONE; PHENYLEPHRINE HCL 100 MCG/ML SYR IVP PRN; PROPOFOL 200 MG/20 ML VIAL ONE; PROPOFOL/EMULSION 500 MG/50 ML BOTTLE IV ONE; ROCURONIUM 50 MG/5 ML VIAL ONE; ceFAZolin 2 GM/SWFI 2 GM/20 ML SYR IVP ONE; ceFAZolin 2 GM/SWFI 20 ML SYR IVP ONE; fentaNYL 100 MCG/2 ML INJ IVP PRN; fentaNYL 100 MCG/2 ML INJ ONE
[2017-06-11 11:57] VITALS: PULSE 78; RESP 16
--- NOTE | 2017-06-11 12:12 | PDHPUP ---
History & Physical Update H&P update statement: This history and physical update is based on an assessment of the patient which was completed after admission or registration (within 24 hours), but prior to the surgery/procedure. H&P update: H&P reviewed & patient examined, no change in patient's condition since H&P completed
--- NOTE | 2017-06-11 12:20 | PDANEPAE ---
ANE History of Present Illness 51 year old female w/ PMHx of HTN, SVT, Sarcoidosis (in remission), DM2, Hypothyroidism and remote history of breast cancer presents for ureteroscopy and laser lithotripsy. ANE Past Medical History - Cardiovascular History Hx Hypertension: Yes Hx Arrhythmias: Yes Hx Chest Pain: No Hx Coronary Artery / Peripheral Vascular Disease: No Hx CHF / Valvular Disease: No Hx Palpitations: No Cardiovascular History Comment: SVT 2006 treated with adenosine: due to HypoKalemia - Pulmonary History Hx COPD: No Hx Asthma/Reactive Airway Disease: No Hx Recent Upper Respiratory Infection: No Hx Oxygen in Use at Home: No Hx Sleep Apnea: No Sleep Apnea Screening Result - Last Documented: Positive Pulmonary History Comment: Sarcoidosis in lungs in remission - Neurologic History Hx Cerebrovascular Accident: No Hx Seizures: No Hx Dementia: No - Endocrine History Hx Diabetes: Yes Endocrine History Comment: DM T2 treated with ORAL. Hypothyroid - Renal History Hx Renal Disorders: Yes Renal History Comment: Kidney stones. current Nephrostomy. Frequent UTI. currently on ABX for UTI - Liver History Hx Hepatic Disorders: No - Neurological & Psychiatric Hx Hx Neurological and Psychiatric Disorders: No - Cancer History Hx Cancer: Yes Cancer History Comment: Breast CA 2008 - Congenital Disorder History Hx Congenital Disorders: No - GI History Hx Gastrointestinal Disorders: Yes Gastrointestinal History Comment: Bowel resection- non cancerous tumor - Other Health History Other Health History: sarcoidosis in remission. DVT >30 years ago - Chronic Pain History Chronic Pain: No - Surgical History Prior Surgeries: Nephrotomy placement Jun 2017. Hernia repair 2016 w/ Roberts. Hysterectomy 2011. Bowel resection 2009. Double mastectomy 2008 ANE Review of Systems Review of systems is: negative Review of Systems: - Exercise capacity Exercise capacity: >=4 METS METS (RN): 4 METS ANE Patient History - Allergies Allergies/Adverse Reactions: Sulfa (Sulfonamide Antibiotics) Allergy (Intermediate, Verified 12/26/15 18:24) Hives naproxen [From Naprosyn] Allergy (Unknown, Verified 06/04/17 10:25) dizziness Anesthetics - Tawnya Type- Parabens [Anesthetics - Tawnya Type] Allergy (Verified 06/11/17 07:05) - Home Medications Home medications: home medication list seen and reviewed Home Medications: Levothyroxine [Synthroid 50 mcg (*)] 50 mcg PO DAILY06 11/03/09 [Last Taken 04/18] Metformin HCl [Metformin 1000 mg] 1,000 mg PO BIDMEAL 08/25/14 [Last Taken 06/10] Acetaminophen [Tylenol 325mg (*)] 325 mg PO DAILY PRN 06/04/17 [Last Taken 06/10] Ascorbic Acid [Vitamin C 500 mg (*)] 500 mg PO DAILY 06/04/17 [Last Taken ] Aspirin [Aspirin 325 mg (*)] 325 mg PO DAILY PRN 06/04/17 [Last Taken 05/28/17] Cholecalciferol Vit D3 [Vitamin D3 (*)] 1,000 units PO DAILY 06/04/17 [Last Taken 06/05/17] Diclofenac Sodium [Voltaren 75 MG (*)] 75 mg PO BID PRN 06/04/17 [Last Taken 12/16] Fluticasone Nasal [Flonase Nasal [place]] 1 sprays NASAL DAILY PRN 06/04/17 [Last Taken 06/07/17] Gemfibrozil [Lopid 600 MG (*)] 600 mg PO BIDAC 06/04/17 [Last Taken 06/10/17] Lisinopril [Zestril 2.5 mg (*)] 2.5 mg PO DAILY 06/04/17 [Last Taken 06/10/17] Multivitamins [Multivitamin (*)] 1 each PO DAILY 06/04/17 [Last Taken 06/06/17] Oxymetazoline HCl [Afrin Nasal [place]] 1 spray EACHNARE BID PRN 06/04/17 [Last Taken 06/04/17] Tetrahydrozoline 0.05% [Visine (*)] 1 drops OP DAILY PRN 06/04/17 [Last Taken ] - NPO status NPO Status: no food or drink >8 hours NPO Since - Liquids (Date): 06/11/17 NPO Since - Liquids (Time): 08:30 NPO Since - Solids (Date): 06/10/17 NPO Since - Solids (Time): 20:00 - Anes Hx Anes Hx: post operative nausea and vomiting - Smoking Hx Smoking Status: Former smoker Marijuana use: No - Alcohol Use Alcohol Use: None - Family Anes Hx Family Anes Hx: neg - N/A Family Hx Anesthesia Complications: NA ANE Labs/Vital Signs - Vital Signs Vital Signs: reviewed preoperatively; see RN documention for details Blood Pressure: 111/67 Heart Rate: 78 Respiratory Rate: 16 O2 Sat (%): 96 Height: 160.02 cm Weight: 81.647 kg ANE Physical Exam - Airway Neck exam: FROM Mallampati Score: Class 2 Mouth exam: normal dental/mouth exam - Pulmonary Pulmonary: no respiratory distress - Cardiovascular Cardiovascular: regular rate and rhythym - ASA Status ASA Status: III ANE Anesthesia Plan Anesthesia Plan: GA w LMA Total IV Anesthesia: No
--- NOTE | 2017-06-11 14:28 | POSTOPPROG ---
Post Op Note Date of Operation: 06/11/17 Surgeon: Gautam Cota Anesthesia: LMA Pre-op Diagnosis: ureterolithiasis Procedure: ureteroscopy laser Inf/Abcess present in the surg proc area at time of surgery?: No EBL: Minimal Drains: Other (stent,,,dictated)
[2017-06-11 14:40] VITALS: TEMP 97.9
--- NOTE | 2017-06-11 14:44 | GOP ---
[f rep st] OPERATIVE REPORT DATE OF OPERATION: 06/11/2017 SURGEON: Gautam Cota MD PREOPERATIVE DIAGNOSIS: Right ureterolithiasis. POSTOPERATIVE DIAGNOSIS: Right ureterolithiasis. PROCEDURE PERFORMED: FINDINGS: DESCRIPTION OF PROCEDURE: This lady underwent general anesthesia, prepped and draped in normal steri le fashion in dorsal lithotomy position, and after an appropriate time-out, the scope was passed into her bladder and retrograde revealed a proximal ureteral calculus. At that point, I passed a guidewi re up to beyond the stone, passed the ureteral access sheath up just below the stone. With a semi-rig id ureteroscope and also eventually the flexible ureteral scope, I used a total of [id number] joules to fra gment the stone. It was at 10 franco, 8 pulses. There was a 273 micron fiber. At the of the procedu re, all stone fragments, the size was a tiny bit larger than the laser fiber and I visualized each ca lyx throughout the kidney and the ureter. The ureter had no disruption. Because of the inflammation related to the impacted stone, I went ahead and placed a 4.7 multi-length stent that curled in the re nal pelvis, curled in the bladder. The bladder was emptied. Uro-jet placed in the urethra and then f luoroscopically I removed the nephrostomy tube by uncoiling the wire and removing it intact. She praveen erated the procedure well. She will be discharged home to have followup with stent removal in approx imately 1 week. PROCEDURE PERFORMED: Cystoscopy, retrograde ureteral pyelogram, ureteroscopy, laser lithotripsy of s tone, placement of 4.7 multi-length stent, and fluoroscopic removal of nephrostomy tube. /[id number]/MODL
[2017-06-11 16:45] VITALS: BP 128/85; O2SAT 92
--- NOTE | 2017-06-11 17:34 | POSTANESTH ---
Post Anesthetic Evaluation Cardiovascular Status: Normal, Stable, Similar to Pre-Op Cond Respiratory Status: Normal, Stable, Similar to Pre-op Cond. Level of Consciousness/Mental Status: Can Participate in Eval, Alert and Oriented Pain Control: Adequate, Prn Tx Ordered Nausea/Vomiting Control: Adequate, Prn Tx Ordered Complications Possibly Related to Anesthesia: None Noted
== END | disposition home or self-care (01) ==
LOC: FSGY 11:06
PROVIDERS: ATTEND Specialist
PROC: 0TF68ZZ Fragmentation in Right Ureter, Via Natural or Artificial Opening Endoscopic (ICD-10-PCS; principal; 2017-06-11 12:00)
PROC: 0T768DZ Dilation of Right Ureter with Intraluminal Device, Via Natural or Artificial Opening Endoscopic (ICD-10-PCS; principal; 2017-06-11 12:00)
PROC: 0TP5X0Z Removal of Drainage Device from Kidney, External Approach (ICD-10-PCS; principal; 2017-06-11 12:00)
DX: N20.1 Calculus of ureter (principal); I10 Essential (primary) hypertension; E11.9 Type 2 diabetes mellitus without complications; Z79.84 Long term (current) use of oral hypoglycemic drugs; E03.9 Hypothyroidism, unspecified; Z87.440 Personal history of urinary (tract) infections
CPT/HCPCS: C1758; C1769; C1894; C2625; J0690; J1100; J2250; J2405; J2704; J3010; Q9967